=== PATIENT | female | born 1965 | race Hispanic/Latino ===

== ENCOUNTER 2017-03-18 20:37 | Emergency (ER) | payer SELFPAY ==
[~2017-03-18] VITALS: Ht 152.4 cm; Wt 76.0 kg
[~2017-03-18 20:37] MED LIST: ASPIRIN LOW DOS81 MG PO; CELEXA20 M1 PO; CITALOPRAM10 MG PO; COREG3.125 MG PO; ERYTHROMYCIN BAS1 GM OD; LISINOP/HCTZ1 TAB PO; LISINOPRIL5 MG PO; MACROBID100 MG PO; NAPROXEN250 MG PO; NITROSTAT0.4 MG SL; TORADOL PO; ULTRAM50 MG OR; UNKNOWN BP MED; ZESTRIL/PRIN5 MG/TA1 PO
[2017-03-18 22:04] LABS: HEMATOCRIT 36.8 % (37.0-47.0); HEMOGLOBIN 11.8 g/dl (12.0-16.0); IMMATURE GRANULOCYTES 0.4 % (0.0-1.0); MEAN CORPUSCULAR HGB 25.7 pG CALC (26.0-32.0); MEAN CORPUSCULAR HGB CONC 32.1 g/L CALC (32.0-36.0); NEUT# 4.6 thou/uL (2.00-7.15); RED BLOOD COUNT 4.6 mill/uL (4.20-5.60); RED CELL DISTRI WIDTH 14.4 % (11.5-15.5)
[2017-03-18 22:28] LABS: ALBUMIN 3.9 g/dL (3.2-5.0); ALKALINE PHOSPHATASE 105 u/l (38-126); AMYLASE 53 u/l (30-110); ANION GAP 14 (6-22 (CALC)); BILIRUBIN, TOTAL 0.4 mg/dL (0.0-1.4); BUN 17 mg/dL (7-17); BUN/CREATININE RATIO 27 (12-20 (CALC)); CALCIUM 9.1 mg/dL (8.4-10.2); CARBON DIOXIDE 27 mmol/l (22-30); CHLORIDE 107 mmol/l (95-108); CREATININE 0.6 mg/dL (0.5-1.0); GFR > 60 ML/MIN (>=60 (CALC)); GFR FOR AFR.AMER. > 60 ML/MIN (>=60 (CALC)); GLUCOSE 94 mg/dL (65-105); LIPASE 89 u/l (23-300); POTASSIUM 3.4 mmol/l (3.5-5.1); SGOT/AST 45 u/l (14-36); SGPT/ALT 56 u/l (9-52); SODIUM 144 mmol/l (137-146); TOTAL PROTEIN 7.4 g/dL (6.3-8.2)
[2017-03-18 22:56] LABS: ACT PARTIAL THROMBO TIME 25.4 SECONDS (20.0-32.5); INTERNATIONAL NORMALIZED RATIO 0.9 RATIO (0.7-1.3); PROTHROMBIN TIME 9.9 SECONDS (9.0-12.5)
[2017-03-19 01:08] LABS: URINE BILIRUBIN - DIPSTICK NEGATIVE (NEGATIVE); URINE BLOOD DIPSTICK LARGE (NEGATIVE); URINE CLARITY CLEAR; URINE COLOR YELLOW; URINE GLUCOSE - DIPSTICK NEGATIVE (NEGATIVE); URINE KETONE NEGATIVE (NEGATIVE); URINE LEUK ESTERASE NEGATIVE (NEGATIVE); URINE NITRITE - DIPSTICK NEGATIVE (Negative); URINE PH 6.5 (4.5-8.0); URINE PROTEIN - DIPSTICK NEGATIVE (NEG-TRACE); URINE SPECIFIC GRAVITY <=1.005; URINE UROBILINOGEN - DIPSTICK 0.2 E.U./dL (0.2)
[2017-03-19 01:17] LABS: URINE WBC 0-2 WBC/hpf (0-5)
[2017-03-19 01:39] VITALS: BP 138/67
== END 2017-03-19 01:34 | disposition short-term general hospital (02) | DRG 379 ==
LOC: ED 20:37
PROVIDERS: Emergency Medicine
DX: K62.5 Hemorrhage of anus and rectum (principal); I10 Essential (primary) hypertension; R19.7 Diarrhea, unspecified
CPT/HCPCS: S0164

== ENCOUNTER 2018-03-04 20:46 | Emergency (ER) | payer SELFPAY ==
[~2018-03-04] VITALS: Ht 152.4 cm; Wt 70.4 kg
[2018-03-04 22:35] LABS: HEMATOCRIT 31.5 % (37.0-47.0); IMMATURE GRANULOCYTES 0.3 % (0.0-5.0); MEAN CORPUSCULAR HGB 26.8 pG CALC (26.0-32.0); MEAN CORPUSCULAR HGB CONC 31.1 g/L CALC (32.0-36.0); NEUT# 7.31 thou/uL (2.00-7.15); RED BLOOD COUNT 3.66 mill/uL (4.20-5.60); RED CELL DISTRI WIDTH 14.6 % (11.5-15.5)
[2018-03-04 22:40] LABS: URINE BILIRUBIN - DIPSTICK NEGATIVE (NEGATIVE); URINE BLOOD DIPSTICK LARGE (NEGATIVE); URINE COLOR YELLOW; URINE GLUCOSE - DIPSTICK NEGATIVE (NEGATIVE); URINE KETONE NEGATIVE (NEGATIVE); URINE LEUK ESTERASE NEGATIVE (NEGATIVE); URINE NITRITE - DIPSTICK NEGATIVE (Negative); URINE PH 5.5 (4.5-8.0); URINE PROTEIN - DIPSTICK NEGATIVE (NEG-TRACE); URINE UROBILINOGEN - DIPSTICK 0.2 E.U./dL (0.2)
[2018-03-04 22:48] LABS: ALBUMIN 3.6 g/dL (3.2-5.0); ALKALINE PHOSPHATASE 129 u/l (38-126); ANION GAP 14 (6-22 (CALC)); BILIRUBIN, TOTAL 0.3 mg/dL (0.0-1.4); BUN 12 mg/dL (7-17); BUN/CREATININE RATIO 21 (12-20 (CALC)); CARBON DIOXIDE 27 mmol/l (22-30); CHLORIDE 102 mmol/l (95-108); CREATININE 0.6 mg/dL (0.5-1.0); GFR > 60 ML/MIN (>=60 (CALC)); GFR FOR AFR.AMER. > 60 ML/MIN (>=60 (CALC)); POTASSIUM 3.8 mmol/l (3.5-5.1); SGOT/AST 22 u/l (14-36); SODIUM 139 mmol/l (137-146); TOTAL PROTEIN 7.3 g/dL (6.3-8.2)
[2018-03-04 22:49] LABS: INFLUENZA A NONE DETECTED (NONE DETECT); INFLUENZA B NONE DETECTED (NONE DETECT)
[2018-03-04 22:53] LABS: URINE CLARITY CLEAR
[2018-03-04 22:54] LABS: URINE BACTERIA RARE hpf
[2018-03-04 23:04] LABS: HEMOGLOBIN 9.8 g/dl (12.0-16.0); MEAN CELL VOLUME 86.1 fL CALC (80.0-100.0)
[2018-03-04] MEDS ORDERED: AMOXICILLIN500 MG PO (23:47)
[2018-03-05 00:20] VITALS: BP 110/73
== END 2018-03-05 00:20 | disposition home or self-care (01) | DRG 153 ==
LOC: ED 20:46
PROVIDERS: Emergency Medicine
DX: J02.9 Acute pharyngitis, unspecified (principal); C18.9 Malignant neoplasm of colon, unspecified; C79.9 Secondary malignant neoplasm of unspecified site; I10 Essential (primary) hypertension; Z79.899 Other long term (current) drug therapy

== ENCOUNTER 2018-09-24 22:16 | Emergency (ER) | payer SELFPAY ==
[~2018-09-24] VITALS: Ht 152.4 cm; Wt 67.7 kg
[~2018-09-24 22:16] MED LIST changes: +AMOXICILLIN500 MG PO
[2018-09-24] MEDS ORDERED: OXYCODONE HCL15 MG PO (23:18)
[2018-09-24] MEDS ORDERED: MORPHINE SUL30 M3 PO (23:20)
[2018-09-24 23:34] LABS: ALKALINE PHOSPHATASE 146 u/l (38-126); AMYLASE 33 u/l (30-110); ANION GAP 12 (6-22 (CALC)); BILIRUBIN, TOTAL 0.2 mg/dL (0.0-1.4); BUN 15 mg/dL (7-17); BUN/CREATININE RATIO 31 (12-20 (CALC)); CARBON DIOXIDE 27 mmol/l (22-30); CHLORIDE 101 mmol/l (95-108); CREATININE 0.5 mg/dL (0.5-1.0); GFR > 60 ML/MIN (>=60 (CALC)); GFR FOR AFR.AMER. > 60 ML/MIN (>=60 (CALC)); LIPASE 30 u/l (23-300); POTASSIUM 3.4 mmol/l (3.5-5.1); SGOT/AST 41 u/l (14-36); SODIUM 137 mmol/l (137-146); TOTAL PROTEIN 7.3 g/dL (6.3-8.2)
[2018-09-24 23:37] LABS: HEMATOCRIT 26.5 % (37.0-47.0); HEMOGLOBIN 8.1 g/dl (12.0-16.0); IMMATURE GRANULOCYTES 0.3 % (0.0-5.0); MEAN CELL VOLUME 85.5 fL CALC (80.0-100.0); MEAN CORPUSCULAR HGB 26.1 pG CALC (26.0-32.0); MEAN CORPUSCULAR HGB CONC 30.6 g/L CALC (32.0-36.0); RED CELL DISTRI WIDTH 22.5 % (11.5-15.5)
[2018-09-24 23:38] LABS: MANUAL DIFFERENTIAL YES
[2018-09-24 23:54] LABS: PLATELET COUNT 72 thou/uL (130-400)
[2018-09-25 01:58] LABS: URINE BILIRUBIN - DIPSTICK NEGATIVE (NEGATIVE); URINE BLOOD DIPSTICK MODERATE (NEGATIVE); URINE COLOR YELLOW; URINE GLUCOSE - DIPSTICK NEGATIVE (NEGATIVE); URINE KETONE NEGATIVE (NEGATIVE); URINE LEUK ESTERASE TRACE (NEGATIVE); URINE NITRITE - DIPSTICK NEGATIVE (Negative); URINE PROTEIN - DIPSTICK NEGATIVE (NEG-TRACE); URINE UROBILINOGEN - DIPSTICK 0.2 E.U./dL (0.2)
[2018-09-25 01:59] LABS: URINE SQUAMOUS EPITHELIAL CELL FEW EPI/hpf (0-FEW)
[2018-09-25] MEDS ORDERED: AMOXICILLIN875 MG PO (02:37)
[2018-09-25] MEDS ORDERED: ZOFRAN ODT4 MG PO (02:37)
[2018-09-25 02:47] LABS: INTERNATIONAL NORMALIZED RATIO 0.9 RATIO (0.7-1.3); PROTHROMBIN TIME 9.7 SECONDS (9.0-12.5)
[2018-09-25 03:05] VITALS: BP 118/65
== END 2018-09-25 03:03 | disposition home or self-care (01) | DRG 153 ==
LOC: ED 22:16
PROVIDERS: Emergency Medicine
DX: J02.0 Streptococcal pharyngitis (principal); D69.6 Thrombocytopenia, unspecified; N39.0 Urinary tract infection, site not specified; C18.9 Malignant neoplasm of colon, unspecified; I10 Essential (primary) hypertension; Z79.899 Other long term (current) drug therapy; Z93.3 Colostomy status

== ENCOUNTER 2018-12-04 22:25 | Inpatient (IN) | payer OTHER ==
[~2018-12-04] VITALS: Ht 152.4 cm; Wt 65.5 kg
[~2018-12-04 22:25] MED LIST changes: +AMOXICILLIN875 MG PO; +MORPHINE SUL30 M3 PO; +OXYCODONE HCL15 MG PO; +ZOFRAN ODT4 MG PO
--- NOTE | 2018-12-04 22:28 | NUR ---
PATIENT TO ROOM 12 VIA WHEELCHAIR FOR BEDSIDE TRIAGE. UNDRESSED INTO A GOWN. AWAITING MD SIMPSON.
[2018-12-04 23:13] LABS: HEMATOCRIT 30.5 % (37.0-47.0); HEMOGLOBIN 9.8 g/dl (12.0-16.0); IMMATURE GRANULOCYTES 0.9 % (0.0-5.0); MEAN CELL VOLUME 89.7 fL CALC (80.0-100.0); MEAN CORPUSCULAR HGB 28.8 pG CALC (26.0-32.0); MEAN CORPUSCULAR HGB CONC 32.1 g/L CALC (32.0-36.0); NEUT# 9.54 thou/uL (2.00-7.15); RED BLOOD COUNT 3.4 mill/uL (4.20-5.60); RED CELL DISTRI WIDTH 15.5 % (11.5-15.5)
[2018-12-04 23:48] LABS: BUN 17 mg/dL (7-17); BUN/CREATININE RATIO 20 (12-20 (CALC)); CARBON DIOXIDE 28 mmol/l (22-30); CHLORIDE 90 mmol/l (95-108); CREATININE 0.8 mg/dL (0.5-1.0); GFR > 60 ML/MIN (>=60 (CALC)); GFR FOR AFR.AMER. > 60 ML/MIN (>=60 (CALC)); LIPASE 12 u/l (23-300); POTASSIUM 3.4 mmol/l (3.5-5.1); TOTAL PROTEIN 6.3 g/dL (6.3-8.2)
[2018-12-04 23:56] LABS: ALKALINE PHOSPHATASE 317 u/l (38-126); AMYLASE < 30 u/l (30-110); ANION GAP 14 (6-22 (CALC)); BILIRUBIN, TOTAL 1.4 mg/dL (0.0-1.4); SGOT/AST 184 u/l (14-36); SODIUM 129 mmol/l (137-146)
[2018-12-05] LABS: MYOGLOBIN 36 ng/mL (0 - 62)
--- NOTE | 2018-12-05 00:30 | NUR ---
NO SIGNIFICANT CHANGE NOTED.
[2018-12-05 01:58] LABS: URINE BILIRUBIN - DIPSTICK NEGATIVE (NEGATIVE); URINE BLOOD DIPSTICK LARGE (NEGATIVE); URINE COLOR YELLOW; URINE GLUCOSE - DIPSTICK NEGATIVE (NEGATIVE); URINE KETONE NEGATIVE (NEGATIVE); URINE LEUK ESTERASE NEGATIVE (NEGATIVE); URINE NITRITE - DIPSTICK NEGATIVE (Negative); URINE PROTEIN - DIPSTICK 30 mg/dL (NEG-TRACE); URINE SPECIFIC GRAVITY <=1.005; URINE UROBILINOGEN - DIPSTICK 0.2 E.U./dL (0.2)
[2018-12-05 02:13] LABS: URINE RBC 25-50 RBC/hpf (0-5); URINE SQUAMOUS EPITHELIAL CELL FEW EPI/hpf (0-FEW)
--- NOTE | 2018-12-05 03:25 | NUR ---
Admission Note Report Given to: TODD BALBUENA Transported by: Wheelchair X Stretcher Transported with: X Nurse Transporter X Patent IV O2 X Acid Condenser
[2018-12-05 03:38] VITALS: BP 110/71
--- NOTE | 2018-12-05 03:38 | NUR ---
PT ARRIVED TO THE FLOOR VIA STRETCHER, ACCOMPANIED BY ER STAFF AND PT DAUGHTER. ALERT AND ORIENTED. PT AMBULATED FROM STRETCHER TO SCALE TO BED, WITH A STEADY GATE. VS OBTAINED AND ASSESSMENT COMPLETED. RESPIRATIONS EVEN AND UNLABORED ON RA. LUNGS SOUND CLEAR. PEDAL PULSES ARE STRONG. COLOSTOMY LEFT LOWER QUADRANT. PT REPORTS PAIN IN HER UPPER ABDOMEN STATING IT FEELS LIKE PRESSURE RATING 6/10 ON PAIN SCALE. PT ASSISTED TO THE RESTROOM AND BACK INTO BED. #2O LH INFUSING VANCO. PT ORIENTED TO ROOM AND CALL SAMPSON SYSTEM. SAFETY PRECAUTIONS IN PLACE. WILL CONTINUE TO MONITOR.
[2018-12-05 07:40] VITALS: BP 101/70
--- NOTE | 2018-12-05 07:40 | NUR ---
pt awake in bed; no apparent distress noted; pt offers no complaints other than being cold; assessment completed at this time; pt denies pain; no sob noted; #20 to lh patent with ivf infusing without complication; no redness or edema noted at site; colostomy to ll abd with formed stool noted; plan of care/ am meds explained; pt speaks some iraqi; lettuce cutter line offered and declined; pt admits to understanding this time; will continue to monitor
--- NOTE | 2018-12-05 08:40 | NUR ---
Dr Luna present at bedside to assess pt and discuss plan of care
[2018-12-05 11:04] VITALS: BP 99/69
--- NOTE | 2018-12-05 11:21 | NUR ---
DR MONCADA AT BEDSIDE.
--- NOTE | 2018-12-05 11:25 | NUR ---
RECEIVED PT INLOW FOWLERS POSITION. AWAKE, ALERT. AT PTS BEDSIDE. IV SITE INLEFT HAND SECURED. PT DENIES ANY NEEDS.
--- NOTE | 2018-12-05 13:00 | NUR ---
PT WATCHING TV. FAMILY AT BEDSIDE. NO COMPLAINTS OFFERED.
--- NOTE | 2018-12-05 15:54 | NUR ---
PT RESTING IN LOW FOWLERS POSITION. EYES CLOSED. RESP EASY. VISITOR AT BEDSIDE. DENIES ANY NEEDS.
--- NOTE | 2018-12-05 16:00 | NUR ---
REPORT RECIEVED FROM TODD REY. PT RESTING IN BED. NO S/S OF DISTRESS, SAFETY PRECAUTIONS IN PLACE, WILL CONTINUE TO MONITOR.
[2018-12-05 17:05] VITALS: BP 119/81
[2018-12-05 19:00] VITALS: BP 109/71
--- NOTE | 2018-12-05 20:00 | NUR ---
PT RESTING IN BED DAUGHTER AT BEDSIDE. PT ALERT AND ORIENTED. RESPIRATIONS ARE EVEN AND UNLABORED ON RA, LUNGS SOUND CLEAR. PEDAL PULSES STRONG. TELE IS IN PLACE. PT DENIES ANY PAIN AT THIS TIME. PT REPORTS HAVING NAUSEA MD TO BE NOTIFIED. SAFETY PRECAUTION IN PLACE. WILL CONTINUE TO MONITOR.
--- NOTE | 2018-12-05 23:45 | NUR ---
PT RESTING IN BED DAUGHTER AT BEDSIDE. RESPIRATIONS EVEN AND UNLABORED ON RA. ZOSYN HUNG AND INFUSING PER EMAR ORDERS. CALL SAMPSON WITHIN REACH. WILL CONTINUE TO MONITOR.
[2018-12-06] VITALS (8 sets, daily range): BP systolic 99–131; BP diastolic 52–85
--- NOTE | 2018-12-06 04:28 | NUR ---
PT RESTING IN BED DAUGHTER AT BEDSIDE. NO S/S OF DISTRESS AT THIS TIME. TELE IN PLACE. WILL CONTINUE TO MONITOR.
[2018-12-06 05:08] LABS: HEMATOCRIT 25.6 % (37.0-47.0); HEMOGLOBIN 8.1 g/dl (12.0-16.0); MEAN CELL VOLUME 92.1 fL CALC (80.0-100.0); MEAN CORPUSCULAR HGB 29.1 pG CALC (26.0-32.0); MEAN CORPUSCULAR HGB CONC 31.6 g/L CALC (32.0-36.0); RED BLOOD COUNT 2.78 mill/uL (4.20-5.60); RED CELL DISTRI WIDTH 15.4 % (11.5-15.5)
[2018-12-06 05:20] LABS: BUN 14 mg/dL (7-17); BUN/CREATININE RATIO 18 (12-20 (CALC)); CARBON DIOXIDE 28 mmol/l (22-30); CHLORIDE 100 mmol/l (95-108); CREATININE 0.8 mg/dL (0.5-1.0); GFR > 60 ML/MIN (>=60 (CALC)); GFR FOR AFR.AMER. > 60 ML/MIN (>=60 (CALC)); POTASSIUM 2.9 mmol/l (3.5-5.1)
[2018-12-06 05:39] LABS: ANION GAP 12 (6-22 (CALC)); SODIUM 137 mmol/l (137-146)
--- NOTE | 2018-12-06 07:30 | NUR ---
PT RESTING IN BED STATES PAIN IS THER BU TOLERABLE, AM ASSESSMENT COMPLETED SEE INTERVENTIONS, COLOSTOMY INTACT WITH PINK / BEEFY RED STOME AND SMALLA [place] LOOSE BECKETT STOOL NOTED IN BAG, LUNGS CLEAR WITH NO SOB OR DISTRESS NTOED, ABD SOFT, COMFORT MEASURES PROVIDED, SAFETY MEASURES REINFORCED, WILL CONTINUE TO MONITOR.
--- NOTE | 2018-12-06 09:10 | NUR ---
IN TO SEE PATIENT AND PLAN OF CARE DISCUSSED
--- NOTE | 2018-12-06 09:15 | NUR ---
PT TAKES PO MEDICATION INCLUDING POTASSIUM W/O INCIDENT, VERBALIZES DESIRE TO SHOWER LATER STATES SHE WILL ASK HER FAMILY TO BRING IN OSTOMY SUPPLIES FOR HER.
--- NOTE | 2018-12-06 14:00 | NUR ---
PT RESTING, DOZES INTERMITTENLY, OFFERS NO NEW COMPLAINTS, CALL SAMPSON WITHIN REACH
--- NOTE | 2018-12-06 16:59 | NUR ---
PT SHOWERED AND TOLERATED ACTVITY WELL, CURRENTLY SITTING IN BED VISITING WITH VISITOR, DAUGHTER AT BEDSIDE, WILL CONTINUE TO MONITOR.
--- NOTE | 2018-12-06 18:09 | NUR ---
PT RESTING IN BED, VISITIGN WITH VISITORS, NO S/S OF DISTRESS OR DISCOMFORT NOTED, WILL CONTINUE TO MONITOR.
--- NOTE | 2018-12-06 19:30 | NUR ---
PT RESTING IN BED DAUGHTER AT BEDSIDE. PT ALERT AND ORIENTED. RESPIRATIONS EVEN AND UNLABORED ON RA. LUNGS SOUND CLEAR. TELE IN PLACE. PEDAL PULSES STRONG. PT REPORTS FEELING NAUSIOUS PREVIOUSLY MEDICATED, PT EDUCATED ON ZOFRAN AND MED SCHEDULE. PT DENIES ANY NEEDS AT THIS TIME. CALL SAMPSON WITHIN REACH. WILL CONTINUE TO MONITOR.
--- NOTE | 2018-12-06 20:04 | NUR ---
REPORT RECEIVED FROM TODD HARRIS. PT RESTING IN BED DAUGHTER AT BEDSIDE. NO S/S OF DISTRESS. WILL CONTINUE TO MONITOR.
--- NOTE | 2018-12-06 23:56 | NUR ---
PT RESTING IN BED NO S/S OF DISTRESS AT THIS TIME. SAFETY PRECAUTIONS IN PLACE. WILL CONTINUE TO MONITOR.
[2018-12-07 00:10] VITALS: BP 111/71
[2018-12-07 04:10] VITALS: BP 137/89
--- NOTE | 2018-12-07 04:12 | NUR ---
PT RESTING IN BED. TELE IN PLACE. RESPIRATIONS EVEN AND UNLABORED ON RA. NO S/S OF DISTRESS WILL CONTINUE TO MONITOR.
[2018-12-07 06:04] LABS: HEMATOCRIT 24.7 % (37.0-47.0); HEMOGLOBIN 7.7 g/dl (12.0-16.0); MEAN CELL VOLUME 92.5 fL CALC (80.0-100.0); MEAN CORPUSCULAR HGB 28.8 pG CALC (26.0-32.0); MEAN CORPUSCULAR HGB CONC 31.2 g/L CALC (32.0-36.0); RED BLOOD COUNT 2.67 mill/uL (4.20-5.60); RED CELL DISTRI WIDTH 15.3 % (11.5-15.5)
[2018-12-07 06:08] LABS: ALBUMIN 2.6 g/dL (3.2-5.0); ALKALINE PHOSPHATASE 309 u/l (38-126); BILIRUBIN, TOTAL 1.1 mg/dL (0.0-1.4); BUN 11 mg/dL (7-17); BUN/CREATININE RATIO 16 (12-20 (CALC)); CARBON DIOXIDE 28 mmol/l (22-30); CHLORIDE 103 mmol/l (95-108); CREATININE 0.7 mg/dL (0.5-1.0); GFR > 60 ML/MIN (>=60 (CALC)); GFR FOR AFR.AMER. > 60 ML/MIN (>=60 (CALC)); SGOT/AST 95 u/l (14-36); SODIUM 138 mmol/l (137-146); TOTAL PROTEIN 5.7 g/dL (6.3-8.2)
[2018-12-07 06:33] LABS: IMMATURE GRANULOCYTES 0.4 % (0.0-5.0); NEUT# 3.63 thou/uL (2.00-7.15)
[2018-12-07 06:38] LABS: ANION GAP 11 (6-22 (CALC)); POTASSIUM 3.8 mmol/l (3.5-5.1)
[2018-12-07 07:30] VITALS: BP 124/65
--- NOTE | 2018-12-07 07:30 | NUR ---
PT RESTING IN BED WATCHING TV. PT IS ALERT AND ORIENTED X3. SHIFT ASSESSMENT COMPLETED AT THIS TIME. IV PATENT X1. CALL LIGHT IN REACH. WILL CONTINUE TO MONITOR.
--- NOTE | 2018-12-07 10:05 | NUR ---
dr mandujano at bedside to discuss plan of care
[2018-12-07 11:06] VITALS: BP 135/87
--- NOTE | 2018-12-07 12:00 | NUR ---
PT RESTING IN BED WITH AWAKE. PT HAD AN EPISODE VOMITTING. WILL MEDICATE PER JUL. CALL LIGHT IN REACH. WILL CONTINUE TO MONITOR.
--- NOTE | 2018-12-07 13:29 | NUR ---
SPOKE WITH DR SALAZAR ABOUT INCREASED N/V NEW ORDERS RECEIVED.
--- NOTE | 2018-12-07 15:05 | NUR ---
COMPAZINE GIVEN PER MAR FOR EPISODE OF N/V
[2018-12-07 15:10] VITALS: BP 133/79
--- NOTE | 2018-12-07 16:00 | NUR ---
PT RESTING IN BED DAUGHTER IN ROOM .RESP ARE EVEN AND UNLABORED. NO DISTRESS NOTED. CALL LIGHT IN REACH. WILL CONTINUE TO MONITOR.
[2018-12-07 19:00] VITALS: BP 146/92
--- NOTE | 2018-12-07 19:57 | NUR ---
REPORT RECEIVED FROM TODD FRANCO. PT RESTING IN BED. DAUGHTER AT BEDSIDE. NO S/S OF DISTRESS AT THIS TIME. WILL CONTINUE TO MONITOR.
--- NOTE | 2018-12-07 21:15 | NUR ---
PT RESTING IN BED ALERT AND ORIENTED. RESPIRATIONS EVEN AND UNLABORED ON RA. LUNGS SOUND CLEAR. PEDAL PULSE STRONG. PT DENIES ANY PAIN OR DISCOMFORT AT THIS TIME. #20 LH NS @ 100 ML/HR INFUSING, SITE APPEARS HEALTHY. SAFETY PRECAUTIONS IN PLACE. WILL CONTINUE TO MONITOR.
[2018-12-08] VITALS (14 sets, daily range): BP systolic 118–177; BP diastolic 71–96
--- NOTE | 2018-12-08 | NUR ---
PT RESTING IN BED. NO S/S OF DISTRESS AT THIS TIME. TELE IN PLACE. WILL CONTINUE TO MONITOR.
--- NOTE | 2018-12-08 02:37 | NUR ---
PT REPORTS FEELING NAUSIOUS, PT MEDICATED PER EMAR ORDERS. WILL CONTINUE TO MONITOR.
--- NOTE | 2018-12-08 04:07 | NUR ---
PT RESTING IN BED WITH EYES CLOSED. RESPIRATIONS EVEN AND UNLABORED ON RA. NO S/S OF DISTRESS. TELE IN PLACE. WILL CONTINUE TO MONITOR.
[2018-12-08 04:51] LABS: HEMATOCRIT 23.1 % (37.0-47.0); HEMOGLOBIN 7.2 g/dl (12.0-16.0); MEAN CELL VOLUME 91.7 fL CALC (80.0-100.0); MEAN CORPUSCULAR HGB 28.6 pG CALC (26.0-32.0); MEAN CORPUSCULAR HGB CONC 31.2 g/L CALC (32.0-36.0); RED BLOOD COUNT 2.52 mill/uL (4.20-5.60); RED CELL DISTRI WIDTH 14.9 % (11.5-15.5)
[2018-12-08 04:58] LABS: IMMATURE GRANULOCYTES 0.3 % (0.0-5.0); NEUT# 2.78 thou/uL (2.00-7.15)
[2018-12-08 05:01] LABS: ALBUMIN 2.6 g/dL (3.2-5.0); ALKALINE PHOSPHATASE 255 u/l (38-126); BILIRUBIN, TOTAL 0.8 mg/dL (0.0-1.4); BUN 9 mg/dL (7-17); BUN/CREATININE RATIO 14 (12-20 (CALC)); CARBON DIOXIDE 28 mmol/l (22-30); CREATININE 0.6 mg/dL (0.5-1.0); GFR > 60 ML/MIN (>=60 (CALC)); GFR FOR AFR.AMER. > 60 ML/MIN (>=60 (CALC)); POTASSIUM 3.1 mmol/l (3.5-5.1); SGOT/AST 71 u/l (14-36); SODIUM 136 mmol/l (137-146); TOTAL PROTEIN 5.4 g/dL (6.3-8.2)
[2018-12-08 05:27] LABS: ANION GAP 11 (6-22 (CALC)); CHLORIDE 100 mmol/l (95-108)
--- NOTE | 2018-12-08 07:36 | NUR ---
DISCUSSED TRANSFER TO ICU WITH PT AND DAUGHTER, BOTH AGREED. DISCUSSED TRANFUSION OF PLATELETS, CONSENT SIGNED FOR TRANFUSION. BELONGINS PACKED FOR TRANSFER TO ICU.
--- NOTE | 2018-12-08 07:44 | NUR ---
PT ARRIVED TO ICU 6 BY WC IN STABLE CONDITON. DAUGHTER @BEDSIDE. PT PLACED ON MONITOR. STARTED IVF.
--- NOTE | 2018-12-08 10:15 | NUR ---
PURE WICK PLACED ON PT, CONNECTED TO SUCTION.
--- NOTE | 2018-12-08 11:06 | NUR ---
DR COE @BEDSIDE ASSESSING PT, DISCUSSING TEST RESULTS & POC; INCLUDING BLOOD TRANSFUSIONS & MEDICATIONS.
--- NOTE | 2018-12-08 11:11 | NUR ---
PER DR COE, REMOVE BP CUFF UNTIL 1 HR AFTER TRANSFUSION COMPLETION TO PREVENT BRUISING. EDUCATED PT ON IMPORTANCE OF PREVENTING INJURY.
--- NOTE | 2018-12-08 11:35 | NUR ---
PER DR COE, HOLD PTS NADIYAAQUIN TODAY D/T LOW PLATELETS.
--- NOTE | 2018-12-08 13:31 | NUR ---
LAB @BEDSIDE FOR REDRAW.
[2018-12-08 13:55] LABS: HEMATOCRIT 24.8 % (37.0-47.0); HEMOGLOBIN 7.9 g/dl (12.0-16.0); IMMATURE GRANULOCYTES 0.3 % (0.0-5.0); MEAN CELL VOLUME 91.9 fL CALC (80.0-100.0); MEAN CORPUSCULAR HGB 29.3 pG CALC (26.0-32.0); MEAN CORPUSCULAR HGB CONC 31.9 g/L CALC (32.0-36.0); NEUT# 3.04 thou/uL (2.00-7.15); RED BLOOD COUNT 2.7 mill/uL (4.20-5.60); RED CELL DISTRI WIDTH 14.9 % (11.5-15.5)
--- NOTE | 2018-12-08 14:29 | NUR ---
DR COE NOTIFIED OF PLT COUNT OF 39. REQUEST TO RECHECK IN THE AM.
--- NOTE | 2018-12-08 14:32 | NUR ---
DAUGHTER, BENITO (EX [facility] ICU NURSE), & MALE @BEDSIDE. PT/FAMILY UPDATED.
--- NOTE | 2018-12-08 15:16 | NUR ---
1100[facility]
--- NOTE | 2018-12-08 15:45 | NUR ---
IV NOT CHANGED D/T LOW PLATELETS.
--- NOTE | 2018-12-08 16:26 | NUR ---
PT APPEARS HAPPY, RESTING IN BED, DAUGHTERS x2 @BEDSIDE. VSS. CALLBELL W/IN REACH. WILL CONTINUE TO MONITOR.
--- NOTE | 2018-12-08 17:00 | NUR ---
PT BATHED, TEETH BRUSHES, NEW PUREWICK PLACED, GOWN/SOCK & PARTIAL LINEN CHANGE
--- NOTE | 2018-12-08 19:00 | NUR ---
BEDSIDE REPORT RECEIVED FROM TODD INTERIANO.
--- NOTE | 2018-12-08 19:53 | NUR ---
PT RESTING IN BED SEMI FOWLERS; ALERT AND ORIENTED. DENIES PAIN. RESPIRATIONS EVEN AND UNLABORED ON ROOM AIR. ASSESSMENT COMPLETED. UPON ASSESSMENT OF PURWIK CATHETER PT NOTED TO BE WET. PT TRANSFERRED TO BEDSIDE CHAIR; ASSISTED WITH HYGEINE AND CHEY CARE AND ALL LINENS CHANGED INCLUDING GOWN. PURWIK REMOVED FOR NOW. OSTOMY BAG EMPTIED OF MODERATE LIGHT BROWN SOFT BOWEL MOVEMENT. FAMILY AT BEDSIDE AND ASKING ABOUT HOW THEY GO ABOUT FILLING OUT POA PAPER WORK. WILL ADVISE CASE MANAGEMENT. PT REQUESTS TO SIT UP IN CHAIR. CALL LIGHT WITHIN REACH AND PT REMINDED OF FALL PRECAUTIONS; STATES UNDERSTANDING.
--- NOTE | 2018-12-08 21:06 | NUR ---
PT UP TO BSC TO VOID AND EMPTY OSTOMY BAG OF SMALL BM; REPOSITIONED BACK INTO BED SEMI FOWLERS. ONE FAMILY MEMBER AT BEDSIDE.
--- NOTE | 2018-12-08 23:06 | NUR ---
PT UP TO BSC TO VOID. BLOOD PRESSURE WAS ELEVATED, BUT NOW IMPROVED AT PAIN MEDICATION. SINUS REEMA ON TELEMETRY WHILE AT REST. ONE FAMILY MEMBER REMAINS AT BEDSIDE.
[2018-12-09] VITALS (14 sets, daily range): BP systolic 125–170; BP diastolic 61–92
--- NOTE | 2018-12-09 01:06 | NUR ---
PT RESTING WITH EYES CLOSED AND NO SIGNS OF DISTRESS. AFEBRILE; VS STABLE. IV FLUIDS INFUSING WITHOUT DIFFICULTY; IV SITE TO LEFT HAND APPEARS HEALTHY. REPOSITIONING SELF IN BED AND USING CALL LIGHT PRN FOR ASSISTANCE. SAFETY MEASURES IN PLACE. CALL LIGHT WITHIN REACH.
--- NOTE | 2018-12-09 02:28 | NUR ---
UP TO BSC TO VOID. PT STEADY. TRANSFERS INDEPENDENTLY WITH SUPERVISION.
--- NOTE | 2018-12-09 04:55 | NUR ---
LAB AT BEDSIDE.
[2018-12-09 05:23] LABS: HEMATOCRIT 24.5 % (37.0-47.0); HEMOGLOBIN 7.6 g/dl (12.0-16.0); IMMATURE GRANULOCYTES 0.5 % (0.0-5.0); MEAN CELL VOLUME 93.2 fL CALC (80.0-100.0); MEAN CORPUSCULAR HGB 28.9 pG CALC (26.0-32.0); NEUT# 3.09 thou/uL (2.00-7.15); RED BLOOD COUNT 2.63 mill/uL (4.20-5.60); RED CELL DISTRI WIDTH 14.8 % (11.5-15.5)
[2018-12-09 05:36] LABS: ANION GAP 13 (6-22 (CALC)); BUN 11 mg/dL (7-17); BUN/CREATININE RATIO 20 (12-20 (CALC)); CARBON DIOXIDE 25 mmol/l (22-30); CHLORIDE 106 mmol/l (95-108); CREATININE 0.5 mg/dL (0.5-1.0); GFR > 60 ML/MIN (>=60 (CALC)); GFR FOR AFR.AMER. > 60 ML/MIN (>=60 (CALC)); POTASSIUM 4.1 mmol/l (3.5-5.1); SODIUM 140 mmol/l (137-146)
--- NOTE | 2018-12-09 07:10 | NUR ---
PT ASSISTED UP TO BSC FOR URINATION. COLOSTOMY BAG/BECKETT, SOFT EMPTIED.
--- NOTE | 2018-12-09 07:47 | NUR ---
PT SITTING UP IN BED, EATING BREAKFAST. ORDERED DAUGHTER A TRAY ALSO FOR HELPING WITH MOM.
--- NOTE | 2018-12-09 08:51 | NUR ---
PT GIVEN WARM BLANKET & PILLOW TO PROP HANDS UP ON TO REDUCE EDEMA
--- NOTE | 2018-12-09 09:19 | NUR ---
DR COE @BEDSIDE BUT PT/DAUGHTER IN DEEP SLEEP. REVIEWED CHART, WILL TRANSFER TO MSU.
--- NOTE | 2018-12-09 10:45 | NUR ---
VERIFIED WITH DR COE TO [facility].
--- NOTE | 2018-12-09 11:09 | NUR ---
AFTER CONVERSING WITH HOUSE SUP, PT WILL STAY IN ICU MSU O/F D/T POSSIBILITY OF TRANSFERING BACK TO ICU TOMORROW. PT/DAUGHTER AWARE & IN AGREEMENT.
--- NOTE | 2018-12-09 11:56 | NUR ---
PT SLEEPING, DAUGHTER LEFT. LUNCH TRAY PLACED ON BEDSIDE TABLE, WILL REHEAT IF NECESSARY. CALLBELL W/IN REACH.
--- NOTE | 2018-12-09 12:36 | NUR ---
PT ASSISTED UP TO BSC FOR URINATION. NOW SITTING IN RECLINER, EATING LUNCH. LINENS CHANGED. PERICARE COMPLETED. CALLBELL W/IN REACH. NO OTHER NEEDS/CONCERNS AT THIS TIME.
--- NOTE | 2018-12-09 13:44 | NUR ---
COMPLETED ASSISTED BATH & LINEN CHANGE. PT MINIMAL ASSIST BACK TO BED. GIVEN WARM BLANKET. PT ON PERSONAL CELL PHONE. STATES DOESNT TO COME IN BC HE IS VERY SICK WITH A COUGH. ADVISED PT WE CAN GIVE HIM A MASK. WENT THROUGH CHANNELS WITH PT, SEARCHING FOR FRISIAN CHANNELS.
[2018-12-09 14:39] LABS: HEMATOCRIT 27.5 % (37.0-47.0); HEMOGLOBIN 8.3 g/dl (12.0-16.0); IMMATURE GRANULOCYTES 0.7 % (0.0-5.0); MEAN CELL VOLUME 96.2 fL CALC (80.0-100.0); MEAN CORPUSCULAR HGB CONC 30.2 g/L CALC (32.0-36.0); NEUT# 5.24 thou/uL (2.00-7.15); RED BLOOD COUNT 2.86 mill/uL (4.20-5.60); RED CELL DISTRI WIDTH 14.8 % (11.5-15.5)
--- NOTE | 2018-12-09 14:50 | NUR ---
PT GIVEN WATER BOTTLE, PER REQUEST.
--- NOTE | 2018-12-09 15:53 | NUR ---
PT ASSISTED UP TO BSC FOR URINATION & TO EMPTY OSTOMY. PTS HAS HAND TREMORS BUT STEADY GAIT.
--- NOTE | 2018-12-09 16:58 | NUR ---
MALFUNCTION WITH IVF PUMP; TOTAL FLUIDS GIVEN CLEARED WITH MALFUNCTION.
--- NOTE | 2018-12-09 17:27 | NUR ---
PT SITTING UP IN BED, EATING DINNER. PT DOES NOT LIKE MAIN DISH (PORK CHOP & MASHED POTATOES) BUT REFUSES OFFER FOR SOMETHING ELSE. STATES SHE WILL EAT VEGETABLES & SOUP.
--- NOTE | 2018-12-09 19:01 | NUR ---
BEDSIDE REPORT RECEIVED FROM TODD PEREZ. FAMILY AT BEDSIDE.
--- NOTE | 2018-12-09 19:43 | NUR ---
PT SITTING UP IN BED ALERT AND ORIENTED WITH 2 FAMILY MEMBERS AT BEDSIDE. DENIES PAIN. RESPIRAATIONS EVEN AND UNLABORED ON ROOM AIR. PLAN OF CARE REVIEWED. PT ENCOURAGED TO VERBALIZE CONCERNS. STATES UNDERSTANDING. SAFETY MEASURES IN PLACE. CALL LIGHT WITHIN REACH.
--- NOTE | 2018-12-09 19:55 | NUR ---
PT UP TO BSC TO VOID AND COLOSTOMY BAG EMPTIED OF AIR; STOMA APPEARS HEALTHY. IV SITE TO LEFT HAND HAS NO SIGNS OF INFILTRATION OR PHLEBITIS. GENERALIZED TRACE EDEMA TO BILATERAL HANDS; ELEVATED ON PILLOWS. PT IS SINUS RHYTHM ON TELEMTRY WITH HEART RATE IN THE 70'S; VS STABLE.
--- NOTE | 2018-12-10 00:05 | NUR ---
PT ASLEEP WITH NO SIGNS OF DISTRESS; RESPIRATIONS EVEN AND UNLABORED ON ROOM AIR. AWAKENS SPONTANEOUSLY FOR VS. AFEBRILE AND VS STABLE. USES CALL LGIHT PRN FOR ASSISTANCE TO BSC. NO REQUESTS OR CONCERNS AT THIS TIME. ONE FAMILY MEMEBER AT BEDSIDE. SAFETY MEASURES IN PLACE. CALL LIGHT WITHIN REACH.
[2018-12-10 04:02] VITALS: BP 147/76
--- NOTE | 2018-12-10 05:08 | NUR ---
LAB AT BEDSIDE.
--- NOTE | 2018-12-10 05:17 | NUR ---
PT UP TO BSC TO VOID AND OSTOMY BAG EMPTIED OF AIR; NO BOWEL MOVEMENTS THIS SHIFT. REPOSITIONED BACK INTO BED SEMI FOWLERS; PT REPOSITIONING SELF.
[2018-12-10 05:38] LABS: HEMATOCRIT 23.9 % (37.0-47.0); HEMOGLOBIN 7.4 g/dl (12.0-16.0); MEAN CELL VOLUME 93.7 fL CALC (80.0-100.0); RED BLOOD COUNT 2.55 mill/uL (4.20-5.60); RED CELL DISTRI WIDTH 14.8 % (11.5-15.5)
[2018-12-10 05:52] LABS: ANION GAP 13 (6-22 (CALC)); BUN 14 mg/dL (7-17); BUN/CREATININE RATIO 21 (12-20 (CALC)); CARBON DIOXIDE 24 mmol/l (22-30); CHLORIDE 108 mmol/l (95-108); CREATININE 0.6 mg/dL (0.5-1.0); GFR > 60 ML/MIN (>=60 (CALC)); GFR FOR AFR.AMER. > 60 ML/MIN (>=60 (CALC)); SODIUM 140 mmol/l (137-146)
[2018-12-10 06:14] LABS: IMMATURE GRANULOCYTES 0.5 % (0.0-5.0); NEUT# 3.55 thou/uL (2.00-7.15)
[2018-12-10 07:00] VITALS: BP 121/80
--- NOTE | 2018-12-10 07:00 | NUR ---
REPORT RECEIVED FROM TODD FRAGA;PT RESTING IN BED WITH FAMILY MEMBER AT BEDSIDE COMPLAINING OF NAUSEA, 20CC OF YELLOW BILE IN BASIN;PT TO BE MEDICATED WITH PRN COMPAZINE 5MG IVP;INTRODUCED SELF TO PT AND POC DISCUSSED, PT A&O X4;PT REPORTS MINIMAL ABDOMINAL PAIN,PAIN SCALE AND REPORTING EDUCATED;ASSESSMENT COMPLETED;RESPIRATIONS EVEN AND UNLABORED ON RA,CLEAR LUNG SOUNDS;ABDOMEN SOFT ON PALPATION AND ACTIVE IN ALL 4 QUADRANTS;COLOSTOMY BAG NOTED TO LLQ, STOMA APPEARS HEALTHY;STRONG PEDAL PULSES;SKIN INTACT, BRUISING NOTED TO RIGHT ARM BUT NO OTHER S/S OF BLEEDING NOTED;#20G TO LEFT HAND INFUSING NS @ 100ML/HR,SITE APPEARS HEALTHY AND FREE FROM EDEMA;PT AMBULATED TO BEDSIDE COMMODE AND VOIDED 200CC OF CLEAR/YELLOW URINE,RE-POSITIONED BACK INTO BED;VS STABLE;PT DENIES ANY ADDITIONAL NEEDS AT THIS TIME AND IS ENCOURAGED TO CALL FOR ASSISTANCE IF NEEDED;FALL PRECAUTIONS IN PLACE WITH BED IN THE LOWEST POSITION AND CALL LIGHT IN REACH;WILL CONTINUE TO MONITOR
[2018-12-10 07:22] VITALS: BP 151/86
--- NOTE | 2018-12-10 08:30 | NUR ---
AT BEDSIDE DISCUSSING POC.
--- NOTE | 2018-12-10 09:30 | NUR ---
PT RESTING IN SEMI FOWLERS POSITION WITH FAMILY MEMBER AT BEDSIDE;RESPIRATIONS EVEN AND UNLABORED ON RA;PT REPORTS ABDOMINAL PAIN TO BE A 6/10 ON THE PAIN SCALE, MEDICATED WITH SCHEDULED HOME MORPHINE PO;IV FLUIDS CONTINUE TO INFUSE TO LEFT HAND WITH EASE;CARDIAC MONITORING IN PLACE;PT DENIES ANY ADDITIONAL NEEDS;CALL LIGHT IN REACH;WILL CONTINUE TO MONITOR
--- NOTE | 2018-12-10 10:40 | NUR ---
PT MEDICAL BILLER CODER LIGHT REQUESTING ASSISTANCE WITH AMBULATING TO BEDSIDE COMMODE;PT AMBULATED WITH A STEADY GAIT AND STAND BY ASSIST AND VOIDED 500CC OF CLEAR/YELLOW URINE, PT ALSO VOMITTED 50CC OF YELLOW BILE INTO BASIN;WARM CLOTH PROVIDED;PT RE-POSITIONED BACK INTO BED;RESPIRATIONS EVEN AND UNLABORED ON RA;PT DENIES ANY ADDITIONAL NEEDS;WILL CONTINUE TO MONITOR
--- NOTE | 2018-12-10 11:10 | NUR ---
IV SITE TO LEFT HAND REMOVED DUE TO LEAKING,CATHETER INTACT AND PRESSURE APPLIED;NEW #22G STARTED TO LEFT FOREARM ON 1ST ATTEMPT BY THIS WRITTER;SITE APPEARS HEALTHY AND NS RE-STARTED PER ORDER;SITE LABELED AND VS OBTAINED;PT DENIES ANY ADDITIONAL NEEDS;WILL CONTINUE TO MONITOR
[2018-12-10 11:13] VITALS: BP 157/86
--- NOTE | 2018-12-10 12:51 | NUR ---
PT PIPED POCKET MACHINE OPERATOR LIGHT REQUESTING ASSISTANCE WITH AMBULATION TO BEDSIDE COMMODE;PT AMBULATED WITH A STEADY GAIT AND VOIDED 200CC OF CLEAR/YELLOW URINE;RE-POSITIONED BACK INTO BED;RESPIRATIONS EVEN AND UNLABORED ON RA;PT DENIES ANY ADDITIONAL NEEDS;ENCOURAGED TO CALL FOR ASSISTANCE IF NEEDED;CALL LIGHT IN REACH;WILL CONTINUE TO MONITOR
--- NOTE | 2018-12-10 14:00 | NUR ---
PT RESTING IN SEMI FOWLERS POSITION WITH FAMILY AT BEDSIDE;RESPIRATIONS EVEN AND UNLABORED ON RA;PT DENIES ANY CURRENT PAIN OR DISCOMFORTS;NEW BAG OF IVF STARTED AT THIS TIME AND IV TUBING CHANGED PER EXPIRATION DATE;ICT MANAGERS READING SR 70-80'S;PT ENCOURAGED TO CALL FOR ASSISTANCE IF NEEDED;CALL LIGHT IN REACH;WILL CONTINUE TO MONITOR
--- NOTE | 2018-12-10 16:15 | NUR ---
LAB AT BEDSIDE
[2018-12-10 16:24] LABS: HEMATOCRIT 25.1 % (37.0-47.0); HEMOGLOBIN 7.8 g/dl (12.0-16.0); MEAN CELL VOLUME 92.6 fL CALC (80.0-100.0); MEAN CORPUSCULAR HGB 28.8 pG CALC (26.0-32.0); MEAN CORPUSCULAR HGB CONC 31.1 g/L CALC (32.0-36.0); RED BLOOD COUNT 2.71 mill/uL (4.20-5.60)
[2018-12-10 16:25] LABS: NEUT# 5.17 thou/uL (2.00-7.15)
--- NOTE | 2018-12-10 16:25 | NUR ---
CALLED RECEIVED FROM LAB REPORTING CRITICAL PLT LEVEL. TO BE NOTIFIED.
--- NOTE | 2018-12-10 16:30 | NUR ---
NOTIFIED OF CRITICALLY LOW PLT COUNT. NO NEW ORDERS RECEIVED AT THIS TIME.
[2018-12-10 16:33] VITALS: BP 146/81
--- NOTE | 2018-12-10 18:00 | NUR ---
PT RESTING IN BED EATING DINNER WITH VISITOR AT BEDSIDE;RESPIRATIONS EVEN AND UNLABORED ON RA;PT DENIES ANY CURRENT PAIN OR DISCOMFORTS;CARDIAC MONITORING IN PLACE;IV FLUIDS INFUSING WELL TO LFA;PT DENIES ANY ADDITIONAL NEEDS AT THIS TIME AND IS ENCOURAGED TO CALL FOR ASSISTANCE IF NEEDED;CALL LIGHT IN REACH;WILL CONTINUE TO MONITOR
--- NOTE | 2018-12-10 19:20 | NUR ---
report called to ana lilia lovett.
--- NOTE | 2018-12-10 20:14 | NUR ---
PT ARRIVES FROM ICU VIA WHEELCHAIR WITH STAFF IN STABLE CONDITION.PT WALKS WITH SLOW UNSTEADY GAIT.FAMILY AT BEDSIDE. ASSESMENT COMPLETED AT THIS TIME. NO NEEDS FROM PT AT THIS TIME. CALL SAMPSON IN REACH. INSTRUCTED TO CALL FOR ASSISTANCE TO RESTROOM. WILL CONTINUE TO MONITOR.
[2018-12-10 20:15] VITALS: BP 153/80
--- NOTE | 2018-12-10 20:15 | NUR ---
to [facility] 262 per w/c.
[2018-12-11] VITALS (7 sets, daily range): BP systolic 133–167; BP diastolic 70–89
--- NOTE | 2018-12-11 | NUR ---
PT RESTING QUIETLY IN BED. NO DISTRESS NOTED. CALL SAMPSON IN REACH WILL CONTINUE TO MONITOR.
--- NOTE | 2018-12-11 04:00 | NUR ---
PT REQUESTING TO USE THE RESTROOM. STAND BY ASSIST ONLY. NO OTHER NEEDS ATHTIS TIME. CALL SAMPSON IN REACH. WILL CONTINUE TO MONITOR.
[2018-12-11 05:55] LABS: HEMATOCRIT 25.2 % (37.0-47.0); HEMOGLOBIN 7.9 g/dl (12.0-16.0); MEAN CORPUSCULAR HGB 28.8 pG CALC (26.0-32.0); MEAN CORPUSCULAR HGB CONC 31.3 g/L CALC (32.0-36.0); RED BLOOD COUNT 2.74 mill/uL (4.20-5.60); RED CELL DISTRI WIDTH 14.8 % (11.5-15.5)
--- NOTE | 2018-12-11 07:10 | NUR ---
PT REPORT RECIEVED FROM DOM LEVIN. PT RESTING. NO S/S OF DISTRESS. CALL LIGHT IN REACH. WILL CONTINUE TO MONITOR.
--- NOTE | 2018-12-11 07:37 | NUR ---
PT A/O X3. SPEECH IS CLEAR. RESP EVEN AND UNLABORED. LUNG SOUNDS CLEAR. TELE IN PLACE. BOWEL SOUNDS ACTIVE X4. STRONG RADIAL AND PEDAL PULSES. #22 LFA NS @100. SITE APPEARS HEALTHY. BOWEL SOUNDS ACTIVE X4. PT C/O ACHING ABOMINAL PAIN; 5 OUT OF 10. MEDICATED W/ 10 MG MORPHINE ER PER SCHEDULE. REPOSITIONED FOR COMFORT. COLOSTOMY INTACT. PT DENIES ANY FURTHER NEEDS. POC DISCUSSED. SAFETY PRECAUTIONS IN PLACE. CALL LIGHT IN REACH. WILL CONTINUE TO MONITOR.
--- NOTE | 2018-12-11 08:51 | NUR ---
DR. SALAZAR IN TO SEE PT. NO LABS TO BE DONE AT 1400 PER MD. WILL NOTIFY LAB
--- NOTE | 2018-12-11 11:23 | NUR ---
PT UP TO RESTROOM AT THIS TIME. NO NEEDS. CALL SAMPSON IN REACH. WILL CONTINUE TO MONITOR.
--- NOTE | 2018-12-11 11:28 | NUR ---
PT SITTING ON SIDE OF BED. NO C/O PAIN OR NEEDS. CALL LIGHT IN REACH. WILL CONTINUE TO MONITOR.
--- NOTE | 2018-12-11 15:45 | NUR ---
PT RESTING. NO C/O PAIN OR NEEDS. CALL LIGHT IN REACH. WILL CONTINUE TO MONITOR.
--- NOTE | 2018-12-11 19:00 | NUR ---
RECIVED REPORT FROM DAY NURSE. PATIENT RESTING QUIETLY IN BED WITH FAMILY AT BEDSIDE. NO NEEDS AT THIS TIME. CALL SAMPSON IN REACH. WILL CONTINUE TO MONITOR.
--- NOTE | 2018-12-11 20:22 | NUR ---
PT RESTING IN BED. FAMILY AT BEDSIDE. ASSESMENT COMPLETED AT THIS. COLOSTOMY BAG TO RIGHT SIDE. STOMA APPEARS HEALTHY, SMALL AMOUNT OF BROWN/BECKETT LOOSE STOOL. PT STATES THAT ITS MORE GAS THEN STOOL. BRUISING TO RIGHT ARM. PT HAS NO NEEDS AT THIS TIME. CALL SAMPSON IN REACH. WILL CONTINUE TO MONITOR.
[2018-12-12] VITALS (11 sets, daily range): BP systolic 135–163; BP diastolic 65–86
--- NOTE | 2018-12-12 | NUR ---
PT RESTING IN BED WITH EYES CLOSED. NO S/S OF DISTRESS NOTED. CALL SAMPSON IN REACH. WILL CONTINUE TO MONITOR.
--- NOTE | 2018-12-12 04:00 | NUR ---
PT RESTING IN BED WITH EYES CLOSED. NO S/S OF DISTRESS NOTED. CALL SAMPSON IN REACH. WILL CONTINUE TO MONITOR.
[2018-12-12 05:55] LABS: HEMOGLOBIN 7.2 g/dl (12.0-16.0); MEAN CELL VOLUME 91.3 fL CALC (80.0-100.0); MEAN CORPUSCULAR HGB 28.6 pG CALC (26.0-32.0); MEAN CORPUSCULAR HGB CONC 31.3 g/L CALC (32.0-36.0); RED BLOOD COUNT 2.52 mill/uL (4.20-5.60); RED CELL DISTRI WIDTH 14.8 % (11.5-15.5)
[2018-12-12 06:25] LABS: ANION GAP 13 (6-22 (CALC)); BUN 14 mg/dL (7-17); BUN/CREATININE RATIO 23 (12-20 (CALC)); CARBON DIOXIDE 27 mmol/l (22-30); CHLORIDE 103 mmol/l (95-108); CREATININE 0.6 mg/dL (0.5-1.0); GFR > 60 ML/MIN (>=60 (CALC)); GFR FOR AFR.AMER. > 60 ML/MIN (>=60 (CALC)); POTASSIUM 3.2 mmol/l (3.5-5.1); SODIUM 140 mmol/l (137-146)
--- NOTE | 2018-12-12 06:55 | NUR ---
PT REPORT RECIEVED FROM DOM LEVIN. PT WATCHING TELEVISION. NO S/S OF DISTRESS. CALL LIGHT IN REACH. WILL CONTINUE TO MONITOR.
[2018-12-12 07:02] LABS: IMMATURE GRANULOCYTES 0.6 % (0.0-5.0); NEUT# 2.81 thou/uL (2.00-7.15)
--- NOTE | 2018-12-12 07:05 | NUR ---
CRITICAL PLATELET CALLED BY BENJAMIN IN LAB; PLATELET IS 10. DR. SALAZAR CALLED; TO PUT IN ORDERS. WILL CONTINUE TO MONITOR.
--- NOTE | 2018-12-12 07:51 | NUR ---
PT A/O X3. SPEECH IS CLEAR. RESP EVEN AND UNLABORED. LUNG SONDS CLEAR. TELE IN PLACE. BOWEL SOUNDS ACTIVE X4. COLOSTOMY TO LT ABDOMEN. STRONG RADIAL AND PEDAL PULSES. PT DENIES ANY PAIN OR NEEDS. POC DISCUSSED. SAFETY PRECAUTIONS IN PLACE. CALL LIGHT IN REACH. WILL CONTINUE TO MONITOR.
--- NOTE | 2018-12-12 08:29 | NUR ---
ELECTRONIC PREPRESS OPERATOR CALLLED STATING PT HR IN THE 120S. PT UP TO RESTROOM. NO S/S OF DISTRESS. WILL CONTINUE TO MONITOR.
--- NOTE | 2018-12-12 10:50 | NUR ---
DISCUSSED W/ PT THE NEED FOR BLOOD PRODUCTS PER MD, ALSO DISCUSSED POSSIBLE SIDE EFFECTS. PT STATES UNDERSTANDING. CONSENT OBTAINED.
--- NOTE | 2018-12-12 11:22 | NUR ---
VS DONE. NIKIRN IN W/ CREDIT CONTROL ASSISTANT TO VERIFY PLATELETS. PLATELETS HUNG, PT TOLERATING WELL. IV SITE HEALTHY. WILL CONTINUE TO MONITOR.
--- NOTE | 2018-12-12 11:36 | NUR ---
PT TOLERATED FIRST 15 MIN OF TRANFUSION WELL. NO COMPLAINTS. IV SITE HEALTHY. WILL CONTINUE TO MONITOR.
--- NOTE | 2018-12-12 12:21 | NUR ---
PT TOLERATING PLATELETS WELL. IV SITE HEALTHY. PT EATING LUNCH. NO COMPLAINTS AT THIS TIME. DAUGHTER AT BEDSIDE. WILL CONTINUE TO MONITOR.
--- NOTE | 2018-12-12 14:28 | NUR ---
PLATELETS TRANSFUSED. PT TOLERATED WELL. IV SITE HEALTHY. VS DONE.
[2018-12-12 15:40] LABS: HEMOGLOBIN 7.5 g/dl (12.0-16.0); MEAN CELL VOLUME 91.3 fL CALC (80.0-100.0); MEAN CORPUSCULAR HGB 28.5 pG CALC (26.0-32.0); MEAN CORPUSCULAR HGB CONC 31.3 g/L CALC (32.0-36.0); RED BLOOD COUNT 2.63 mill/uL (4.20-5.60); RED CELL DISTRI WIDTH 14.9 % (11.5-15.5)
[2018-12-12 15:45] LABS: IMMATURE GRANULOCYTES 0.5 % (0.0-5.0); NEUT# 3.82 thou/uL (2.00-7.15)
--- NOTE | 2018-12-12 15:49 | NUR ---
MANDIE FROM LAB CALLED W/ CRITICAL PLATELET COUNT- 15. MADE AWARE. NO NEW ORDERS AT THIS TIME.
--- NOTE | 2018-12-12 19:15 | NUR ---
REPORT FROM KAITLIN FERNANDES. PT RESTING IN BED WITH DAUGHTER AT BEDSIDE. NO DISTRESS NOTED. PT DENIES ANY PAIN OR DISCOMFORT. IV SITE APPEARS HEALTHY. DISCUSSED POC. PT VERBALIZED UNDERSTANDING. CALL LIGHT WITHIN REACH. WILL CONTINUE TO MONITOR.
--- NOTE | 2018-12-13 00:32 | NUR ---
NEW BAG OF IV FLUIDS HUNG AT THIS TIME. PT DENIES ANY CURRENT WANTS OR NEEDS. NO DISTRESS NOTED. PT DENIES ANY PAIN OR DISCOMFORT. CALL LIGHT WITHIN REACH. WILL CONTINUE TO MONITOR.
[2018-12-13 04:04] VITALS: BP 149/89
--- NOTE | 2018-12-13 04:23 | NUR ---
PT RESTING IN BED WITH EYES CLOSED. WAKES EASILY. DENIES ANY WANTS OR NEEDS. NO DISTRESS NOTED. CALL LIGHT WITHIN REACH. WILL CONTINUE TO MONITOR.
[2018-12-13 06:00] LABS: HEMATOCRIT 24.3 % (37.0-47.0); HEMOGLOBIN 7.6 g/dl (12.0-16.0); MEAN CELL VOLUME 91.7 fL CALC (80.0-100.0); MEAN CORPUSCULAR HGB 28.7 pG CALC (26.0-32.0); MEAN CORPUSCULAR HGB CONC 31.3 g/L CALC (32.0-36.0); RED BLOOD COUNT 2.65 mill/uL (4.20-5.60); RED CELL DISTRI WIDTH 14.8 % (11.5-15.5)
[2018-12-13 06:07] LABS: IMMATURE GRANULOCYTES 0.4 % (0.0-5.0); NEUT# 3.87 thou/uL (2.00-7.15)
[2018-12-13 06:23] LABS: ALKALINE PHOSPHATASE 181 u/l (38-126); ANION GAP 11 (6-22 (CALC)); BILIRUBIN, TOTAL 0.5 mg/dL (0.0-1.4); BUN 15 mg/dL (7-17); BUN/CREATININE RATIO 25 (12-20 (CALC)); CARBON DIOXIDE 31 mmol/l (22-30); CHLORIDE 103 mmol/l (95-108); CREATININE 0.6 mg/dL (0.5-1.0); GFR > 60 ML/MIN (>=60 (CALC)); GFR FOR AFR.AMER. > 60 ML/MIN (>=60 (CALC)); POTASSIUM 3.7 mmol/l (3.5-5.1); SGOT/AST 50 u/l (14-36); SODIUM 140 mmol/l (137-146)
[2018-12-13 06:29] LABS: ALBUMIN 3.2 g/dL (3.2-5.0); TOTAL PROTEIN 6.5 g/dL (6.3-8.2)
[2018-12-13 07:45] VITALS: BP 158/85
--- NOTE | 2018-12-13 07:45 | NUR ---
ASSESSMENT IS COMPLETED: IV SITE IS FREE FROM REDNESS OR EDEMA. HR IS REG, PULSES ARE STRONG X4, ABD IS SOFT WITH ACTIVE BS. BREATH SOUNDS ARE CLEAR, BILATERALLY, TELE MONITOR IN PLACE. CONTINUE TO OBSERVE AND MONITOR.
[2018-12-13 11:03] VITALS: BP 140/88
--- NOTE | 2018-12-13 12:15 | NUR ---
PT IS RELAXING IN BED FAMILY IN THE ROOM. IV SITE IS FREE FROM REDNESS OR EDEMA.
[2018-12-13 14:52] LABS: HEMOGLOBIN 7.6 g/dl (12.0-16.0); MEAN CELL VOLUME 91.6 fL CALC (80.0-100.0); MEAN CORPUSCULAR HGB CONC 31.7 g/L CALC (32.0-36.0); RED BLOOD COUNT 2.62 mill/uL (4.20-5.60); RED CELL DISTRI WIDTH 14.8 % (11.5-15.5)
[2018-12-13 14:55] VITALS: BP 132/72
[2018-12-13 14:55] LABS: IMMATURE GRANULOCYTES 0.5 % (0.0-5.0); NEUT# 3.73 thou/uL (2.00-7.15)
--- NOTE | 2018-12-13 14:57 | NUR ---
INFORMED DR. SALAZAR RE: PLATELETES COUNT IS 16 SAME LAB THIS AM.
--- NOTE | 2018-12-13 16:00 | NUR ---
PT IS RELAXING IN BED WITH NO DISTRESS NOTED IV SITE IS FREE FROM REDNESS OR EDEMA. FAMILY IN THE ROOM.
--- NOTE | 2018-12-13 19:00 | NUR ---
REPORT RECEIVED FROM DOM PLASENCIA. PT RESTING IN BED, DAUGHTER AT BEDSIDE. NO S/S OF DISTRESS AT THIS TIME. WILL CONTINUE TO MONITOR.
[2018-12-13 19:05] VITALS: BP 148/90
--- NOTE | 2018-12-13 20:02 | NUR ---
PT RESTING IN BED ALERT AND ORIENTED, DAUGHTER AT BEDSIDE. ASSESSMENT COMPLETED. RESPIRATIONS EVEN AND UNLABORED ON RA. LUNGS SOUND CLEAR. PEDAL PULSES ARE STRONG. PT DENIES ANY PAIN OR DISCOMFORT AT THIS TIME. TELE IN PLACE. CALL SAMPSON WITHIN REACH. WILL CONTINUE TO MONITOR.
--- NOTE | 2018-12-13 23:00 | NUR ---
PT RETURNING TO BED FROM RESTROOM WITH A STEADY GATE. RESPIRATIONS EVEN AND UNLABORED ON RA. CALL SAMPSON WITHIN REACH WILL CONTINEU TO MONITOR.
[2018-12-14] VITALS (10 sets, daily range): BP systolic 127–162; BP diastolic 75–88
--- NOTE | 2018-12-14 04:23 | NUR ---
PT RESTING IN BED. RESPIRATIONS EVEN AND UNLABORED ON RA. NO S/S OF DISTRESS AT THIS TIME. WILL CONTINUE TO MONITOR.
[2018-12-14 05:35] LABS: HEMATOCRIT 23.3 % (37.0-47.0); HEMOGLOBIN 7.4 g/dl (12.0-16.0); MEAN CORPUSCULAR HGB 28.9 pG CALC (26.0-32.0); MEAN CORPUSCULAR HGB CONC 31.8 g/L CALC (32.0-36.0); RED BLOOD COUNT 2.56 mill/uL (4.20-5.60); RED CELL DISTRI WIDTH 14.7 % (11.5-15.5)
--- NOTE | 2018-12-14 07:40 | NUR ---
ASSESSMENT IS COMPLTED: IV SITE IS FREE FROM REDNESS OR EDEMA. HR IS REG,PULSES ARE STRONG X4, ABD IS SOFT WITH ACTIVE BS. BREATH SOUNDS ARE CLEAR, BILATERALLY, TELE MONITOR IN PLACE. CONTINUE TO OSEBRVE AND MONITOR.
--- NOTE | 2018-12-14 12:15 | NUR ---
PT IS RELAXING AND VISITING WITH FAMILY AND FRIENDS., NO DISTRESS NOTED, IV SITE IS FREE FROM REDNESS OR EDEMA.
[2018-12-14 13:29] LABS: PROTHROMBIN TIME 10.7 SECONDS (9.0-12.5)
[2018-12-14 13:32] LABS: ACT PARTIAL THROMBO TIME 16.3 SECONDS (20.0-32.5)
--- NOTE | 2018-12-14 14:11 | NUR ---
PT RECEIVING THE PLATELETS AT THIS TIME.,
--- NOTE | 2018-12-14 16:11 | NUR ---
PT IS AMBULATING IN THE ROOM. IV SITE IS FREE FROM REDNESS OR EDEMA. CONTINUE TO OBSERVE AND MONITOR.
--- NOTE | 2018-12-14 16:46 | NUR ---
PT COMPLETED THE PLATELETS AND TOLERATED WELL.
[2018-12-14 17:48] LABS: HEMATOCRIT 23.9 % (37.0-47.0); HEMOGLOBIN 7.8 g/dl (12.0-16.0); IMMATURE GRANULOCYTES 0.7 % (0.0-5.0); MEAN CELL VOLUME 89.5 fL CALC (80.0-100.0); MEAN CORPUSCULAR HGB 29.2 pG CALC (26.0-32.0); MEAN CORPUSCULAR HGB CONC 32.6 g/L CALC (32.0-36.0); NEUT# 6.03 thou/uL (2.00-7.15); RED BLOOD COUNT 2.67 mill/uL (4.20-5.60)
--- NOTE | 2018-12-14 18:45 | NUR ---
REPORT RECIEVED FROM [facility]. PT RESTING IN BED FAMILY AT BEDSIDE VISITING. NO S/S OF DISTRESS AT THIS TIME. SAFETY PRECAUTIONS IN PLACE. WILL CONTINUE TO MONITOR.
--- NOTE | 2018-12-14 21:30 | NUR ---
PT RESTING IN BED. ALERT AND ORIENTED. RESPIRATIONS EVEN AND UNLABORED ON RA. LUNGS SOUND CLEAR. PEDAL PULSES STRONG. PT DENIES ANY PAIN OR DISCOMFORT AT THIS TIME. SAFETY PRECAUTIONS IN PLACE. WILL CONTINUE TO MONITOR.
[2018-12-15 00:13] VITALS: BP 135/83
--- NOTE | 2018-12-15 00:23 | NUR ---
PT RESTING IN BED WITH EYES CLOSED. RESPIRATIONS EVEN AND UNLABORED ON RA. TELE IN PLACE. NO S/S OF DISTRESS WILL CONTINUE TO MONITOR.
[2018-12-15 04:25] VITALS: BP 134/85
--- NOTE | 2018-12-15 04:29 | NUR ---
PT RESTING IN BED. NO S/S OD DISTRES AT THIS TIME. TELE IN PLACE. CALL [facility] WITHIN REACH WILL CONTINUE TO MONITOR.
[2018-12-15 05:27] LABS: HEMATOCRIT 25.9 % (37.0-47.0); IMMATURE GRANULOCYTES 0.5 % (0.0-5.0); MEAN CELL VOLUME 91.8 fL CALC (80.0-100.0); MEAN CORPUSCULAR HGB 28.4 pG CALC (26.0-32.0); MEAN CORPUSCULAR HGB CONC 30.9 g/L CALC (32.0-36.0); NEUT# 4.42 thou/uL (2.00-7.15); RED BLOOD COUNT 2.82 mill/uL (4.20-5.60); RED CELL DISTRI WIDTH 14.9 % (11.5-15.5)
[2018-12-15 09:11] VITALS: BP 141/74
--- NOTE | 2018-12-15 09:11 | NUR ---
ASSESSMENT IS COMPLTED: IV SITE IS FREE FROM REDNESS OR EDEMA. HR IS REG,PULSES ARE STRONG X4, ABD IS SOFT WITH ACTIVE BS. BREATH SOUNDS ARE CLEAR, BILATERALLY, TELE MO NITOR IN PLACE,
[2018-12-15 10:43] VITALS: BP 135/80
[2018-12-15] MEDS ORDERED: PANTOPRAZOLE SO40 M1 PO (11:54)
[2018-12-15] MEDS ORDERED: CARAFATE1 GM PO (11:54)
[2018-12-15] MEDS ORDERED: PREDNISONE20 MG PO (11:54)
--- NOTE | 2018-12-15 12:00 | NUR ---
PT IS RELAXING IN BED WAITING FOR DISCHARGE.
[2018-12-15] MEDS ORDERED: ZOFRAN4 MG/TAB PO (12:01)
--- NOTE | 2018-12-15 13:30 | NUR ---
IV SITE DISCONTINEUD CATHETER INTACT. NO REDNESS OR EDEMA. DISCHARGE INSTRUCTIONS GIVEN AND VERBALIZED UNDERSTANDING.
--- NOTE | 2018-12-15 13:50 | NUR ---
Discharge instructions given. Patient verbalizes understanding of same. Discharged in stable condition via Wheelchair to Home with family. All belongings sent with pt.
== END 2018-12-15 13:47 | disposition home or self-care (01) | DRG 864 ==
LOC: ED 22:25 → ED-I 12-05 02:17 → ED 12-05 02:53 → MS2 12-05 02:54 → ICU 12-08 07:44 → MS2 12-10 20:15
PROVIDERS: Emergency Medicine; Internal Medicine; ADMIT Internal Medicine; ATTEND Internal Medicine
PROC: 30233R1 Transfusion of Nonautologous Platelets into Peripheral Vein, Percutaneous Approach (ICD-10-PCS; principal; 2018-12-08)
PROC: 30233R1 Transfusion of Nonautologous Platelets into Peripheral Vein, Percutaneous Approach (ICD-10-PCS; 2018-12-12)
PROC: 30233R1 Transfusion of Nonautologous Platelets into Peripheral Vein, Percutaneous Approach (ICD-10-PCS; 2018-12-14)
DX: R50.2 Drug induced fever (principal); E87.1 Hypo-osmolality and hyponatremia; C78.7 Secondary malignant neoplasm of liver and intrahepatic bile duct; C21.0 Malignant neoplasm of anus, unspecified; C77.9 Secondary and unspecified malignant neoplasm of lymph node, unspecified; D69.3 Immune thrombocytopenic purpura; D64.81 Anemia due to antineoplastic chemotherapy; R11.2 Nausea with vomiting, unspecified; R10.13 Epigastric pain; T45.1X5A Adverse effect of antineoplastic and immunosuppressive drugs, initial encounter; E86.0 Dehydration; E87.6 Hypokalemia; I10 Essential (primary) hypertension; R16.0 Hepatomegaly, not elsewhere classified; F32.9 Major depressive disorder, single episode, unspecified; Z79.899 Other long term (current) drug therapy; Z93.3 Colostomy status
CPT/HCPCS: P9034; P9037